=== PATIENT | male | born 1970 | race Caucasian/White ===

== ENCOUNTER 2021-07-09 11:59 | Emergency (ER) | payer BC ==
[2021-07-09 12:35] VITALS: BP 123/70; PULSE 76; TEMP 98.6; BMI 28.1
[2021-07-09] MEDS ORDERED: CASIRIVIMAB/IMDEVIMAB 10 ML in SODIUM CHLORIDE 100 ML IVPB ONE (13:01)
[2021-07-09] MEDS ORDERED: BAMLANIVIMAB 700 MG, ETESEVIMAB 1,400 MG in SODIUM CHLORIDE 100 ML IVPB ONE (13:45)
== END 2021-07-09 17:41 | disposition home or self-care (01) ==
LOC: JER 11:59 → JCOVINFU 11:59
DX: U07.1 COVID-19 (principal)
CPT/HCPCS: 99284-25; M0239; Q0239; Q0245